=== PATIENT | male | born 1960 | race Caucasian/White ===

== ENCOUNTER 2022-10-02 18:12 | Inpatient (IN) | payer OTHER ==
[~2022-10-02] VITALS: Ht 162.6 cm; Wt 95.7 kg
--- NOTE | 2022-10-02 18:21 | NUR ---
Placed in room 07 . Placed on funeral car driver, blood pressure machine and pulse oximeter. To gown for exam. Side rails up. Report given to Ximena PETER .
[2022-10-02 18:22] VITALS: BP_SYST 161
[2022-10-02] MEDS ORDERED: dilTIAZem HCL IVP 5 MG/ML VIAL IVP ONE ×2 (18:30→18:45)
[2022-10-02] MEDS ORDERED: ADENOSINE 6MG/2ML VIAL ONE ×2 (18:34→18:35)
--- NOTE | 2022-10-02 18:42 | NUR ---
# 20 gauge angiocath placed to Right AC. Use of asceptic technique. Opsite placed over site. Blood return noted. Blood for lab drawn from site. Flushed with 10 cc of normal saline. No evidence of infiltration noted. Patient tolerated well.
--- NOTE | 2022-10-02 18:42 | NUR ---
12 Lead EKG done at bedside
--- NOTE | 2022-10-02 18:43 | NUR ---
Adensoine given per MD order, placed patient onto defibrillator, MD and additional RNs at bedside
[2022-10-02 18:45] LABS: BASOPHILS # (AUTO) 0.1 K/uL (0.0-0.2); BASOPHILS % (AUTO) 0.7 % (0.0-2.0); EOSINOPHILS # (AUTO) 0.2 K/uL (0.0-0.4); EOSINOPHILS % (AUTO) 2.6 % (0.0-4.0); HEMATOCRIT 39.6 % (36-54); HEMOGLOBIN 13.3 g/dL (14.0-18.0); LYMPHOCYTES # (AUTO) 2.4 K/uL (1.0-5.5); MEAN CORPUSCULAR HEMOGLOBIN 30 pg (27-31); MEAN CORPUSCULAR HGB CONC 34 % (32-36); MEAN CORPUSCULAR VOLUME 89 fL (79.0-98.0); MONOCYTES # (AUTO) 0.7 K/uL (0.0-1.0); MONOCYTES % (AUTO) 8.2 % (1.7-9.3); NEUTROPHILS # (AUTO) 4.8 K/uL (1.8-7.7); NEUTROPHILS % (AUTO) 59.5 % (40.0-70.0); PLATELET COUNT (AUTO) 147 K/uL (130-430); RED BLOOD CELL COUNT(AUTO) 4.44 MIL/uL (4.2-6.2); RED CELL DISTRIBUTION WIDTH 14.6 % (9.0-15.0); WHITE BLOOD COUNT (AUTO) 8.1 K/uL (4.8-10.8)
[2022-10-02] MEDS ORDERED: ADENOSINE 6MG/2ML VIAL IVP ONE (18:45)
--- NOTE | 2022-10-02 19:10 | NUR ---
RECIEVED REPORT FROM ANDRZEJ PETER, PT IN NAD, EVEN UNLABORED POSITION PT IS CONNECTED TO VS MONITOR AND IS TACHYCARDIC, PT STATES HE HAS A HISTORY OF TACHYCARDIA FOR MONTHS ACCORDING TO PT. AOX4 SAFETY RAILS UP BED LOWEST POSITION.
[2022-10-02 19:13] LABS: CALCIUM 8.4 mg/dL (8.4-11.0); CREATININE 0.84 mg/dL (0.55-1.30)
[2022-10-02] MEDS ORDERED: ATENOLOL 50 MG TABLET (TENORMIN) PO ONE (19:15)
[2022-10-02] MEDS ORDERED: LABETALOL HCL 20 MG/4 ML CARTRIDGE IVP ONE ×2 (19:15→21:15)
[2022-10-02 19:25] LABS: INR 1.1 (0.80-1.20); PROTHROMBIN TIME 11.6 SECS (9.5-12.5)
[2022-10-02 19:26] LABS: ALBUMIN 3.6 g/dL (3.4-4.8); FREE T4 (FREE THYROXINE) 1.1 ng/dL (0.6-1.6); THYROID STIMULATING HORMONE 1.84 uIu/mL (0.34-4.82); TOTAL BILIRUBIN 0.5 mg/dL (0.0-1.0)
--- NOTE | 2022-10-02 20:18 | NUR ---
BP-166/115 HR-143 medicated lobetalol 20mg ivp,and tenormin 50 mg po.
[2022-10-02] MEDS ORDERED: METF-518 PO (20:52)
[2022-10-02] MEDS ORDERED: HYDR-4039 PO (20:52)
[2022-10-02] MEDS ORDERED: LISI20TA30 PO (20:52)
[2022-10-02] MEDS ORDERED: APIX5TAB PO (20:52)
[2022-10-02] MEDS ORDERED: DIGO125T PO (20:52)
[2022-10-02] MEDS ORDERED: IBUP-1969 PO (20:52)
--- NOTE | 2022-10-02 21:21 | NUR ---
PT STATED HE HAS HAD A CARDIAC DEVICE INSERTED INFORMATION CARD IS WITH . ON THE CARD IT SATES I HAVE A/AN [employer] AV TRANSCATHETER PACING SYSTEM IMPLANTED. IMPLANT DATE 10-04-2022 SERIAL NUMBER [id number] MODEL NUMBER [id number]
[2022-10-02] MEDS ORDERED: DIGOXIN 0.5 MG/2 ML AMP IVP ONE (21:45)
[2022-10-02 22:05] VITALS: BP_SYST 157
--- NOTE | 2022-10-02 22:28 | NUR ---
REPORT GIVEN TO [facility]. AT BEDSIDE JABARI, HISTORY GIVEN THAT PT HAS REPORTED IN A NOTEBOOK THE TACHYCARDIA STARTED IN JULY 2022. MEDICATIONS TAKEN BY PT IN NOTEBOOK ALSO, MED REC COMPLETED BY INFORMATION STATED BY PT AND NOTEBOOK. NO CHANGES IN PT STATUS DURING TRANSFER
[2022-10-02] MEDS ORDERED: AMIODARONE HCL 150 MG in D5W 100 ML IV ONE (22:45)
[2022-10-02] MEDS ORDERED: IPRATROPIUM BROM 0.5 MG/2.5 ML VIAL.NEB (ATROVENT) INH PRN (22:45)
[2022-10-02] MEDS ORDERED: ONDANSETRON HCL 4 MG/2 ML VIAL IVP PRN (22:45)
[2022-10-02] MEDS ORDERED: IBUPROFEN 600 MG TABLET PO PRN (22:45)
[2022-10-02] MEDS ORDERED: ACETAMINOPHEN 325 MG TABLET PO PRN (22:45)
[2022-10-02] MEDS ORDERED: ALBUTEROL SULFATE 0.083% 2.5 MG/3 ML VIAL.NEB INH PRN (22:45)
[2022-10-02] MEDS ORDERED: NALOXONE HCL 0.4 MG/ML AMP (NARCAN) IVP PRN ×2 (22:45)
[2022-10-02] MEDS ORDERED: LORazepam 2 MG/ML VIAL IVP PRN (22:45)
[2022-10-02] MEDS ORDERED: HYDROcodone/ACETAMIN 10-325 MG TAB PO PRN (22:45)
[2022-10-02] MEDS ORDERED: HYDROcodone/ACETAMIN 5-325 MG TAB (NORCO/ VICODIN) PO PRN (22:45)
[2022-10-02] MEDS: METOPROLOL SUCCINATE 25 MG TAB.SR.24H (TOPROL XL) PO SCH (22:45)
[2022-10-02] MEDS ORDERED: AMIODARONE HCL 450 MG/9 ML VIAL IV ONE (22:55)
[2022-10-02] MEDS ORDERED: AMIODARONE HCL 150 MG/3ML VIAL ONE (22:55)
--- NOTE | 2022-10-02 23:00 | NUR ---
CONSULTATION PAGED/CALLED Reason for Consultation: TACHYCARDIA Person Who was Notified: DR. Jie COLLADO Consulting Physician: DR. Jie COLLADO Shrinking Machine Operator Specialty: CARDIOLOGY Ordering Physician: DR. Marisela COLLADO
[2022-10-02] MEDS ORDERED: METOPROLOL SUCCINATE 25 MG TAB.SR.24H (TOPROL XL) PO ONE (23:47)
[2022-10-03] VITALS (20 sets, daily range): BP systolic 137–167
[2022-10-03 05:05] LABS: BASOPHILS % (AUTO) 0.6 % (0.0-2.0); EOSINOPHILS # (AUTO) 0.2 K/uL (0.0-0.4); EOSINOPHILS % (AUTO) 3.3 % (0.0-4.0); LYMPHOCYTES # (AUTO) 2.2 K/uL (1.0-5.5); LYMPHOCYTES % (AUTO) 33.3 % (20.5-51.5); MEAN CORPUSCULAR HEMOGLOBIN 30 pg (27-31); MEAN CORPUSCULAR HGB CONC 33 % (32-36); MEAN CORPUSCULAR VOLUME 89 fL (79.0-98.0); MONOCYTES # (AUTO) 0.6 K/uL (0.0-1.0); MONOCYTES % (AUTO) 9.7 % (1.7-9.3); NEUTROPHILS # (AUTO) 3.5 K/uL (1.8-7.7); NEUTROPHILS % (AUTO) 53.1 % (40.0-70.0); PLATELET COUNT (AUTO) 137 K/uL (130-430); RED BLOOD CELL COUNT(AUTO) 4.37 MIL/uL (4.2-6.2); RED CELL DISTRIBUTION WIDTH 14.4 % (9.0-15.0); WHITE BLOOD COUNT (AUTO) 6.6 K/uL (4.8-10.8)
[2022-10-03 05:59] LABS: ALBUMIN 3.3 g/dL (3.4-4.8); CALCIUM 8.3 mg/dL (8.4-11.0); CREATININE 0.79 mg/dL (0.55-1.30); PHOSPHORUS 3.5 mg/dL (2.7-4.5); TOTAL BILIRUBIN 0.8 mg/dL (0.0-1.0)
[2022-10-03] MEDS ORDERED: NORMAL SALINE 5 ML DISP.SYRIN IVF SCH (06:00)
[2022-10-03] MEDS: NORMAL SALINE 5 ML DISP.SYRIN IVF SCH ×3 (06:00→21:36)
[2022-10-03] MEDS ORDERED: AMIODARONE HCL 450 MG/9 ML VIAL IV ONE (07:17)
[2022-10-03] MEDS: AMIODARONE HCL 450 MG in D5W 241 ML IV SCH ×3 (07:23)
--- NOTE | 2022-10-03 08:00 | NUR ---
PT LAYING UP IN BED, IN NAD. RESP EVEN AND UNLABORED, ON VIA NC @97%, DENIES ANY CP OR SOB. ST ON MONITOR. DR COLLADO AWARE, WILL CONT TO MONITOR CLOSELY.
[2022-10-03] MEDS ORDERED: METF-381 PO (08:13)
[2022-10-03] MEDS: hydrALAZINE HCL 25 MG TABLET PO SCH ×3 (08:38→21:34)
[2022-10-03] MEDS: DIGOXIN 0.125 MG TABLET PO SCH (08:38)
[2022-10-03] MEDS: METOPROLOL SUCCINATE 25 MG TAB.SR.24H (TOPROL XL) PO SCH ×2 (08:39→21:34)
[2022-10-03] MEDS: lisinopriL 20 MG TABLET PO SCH (08:39)
[2022-10-03] MEDS ORDERED: metFORMIN HCL 500 MG TABLET ONE (08:42)
[2022-10-03] MEDS: metFORMIN HCL 500 MG TABLET PO SCH ×2 (08:45→18:30)
--- NOTE | 2022-10-03 10:19 | NUR ---
DR PHIPPS NOTIFIED OF PT'S CURRENT CARDIAC TACHYCARDIA, NO NEW ORDERS RECEIVED. PT IN NAD.
--- NOTE | 2022-10-03 11:36 | NUR ---
PT UP TO BEDSIDE TOILET, HAD A NORMAL BM.
[2022-10-03] MEDS ORDERED: APIXABAN 2.5 MG TABLET PO ONE (11:45)
--- NOTE | 2022-10-03 15:32 | NUR ---
FAMILY AT BEDSIDE, UPDATED ON STATUS AND PLAN OF CARE
--- NOTE | 2022-10-03 17:52 | NUR ---
ATE SANDWICH FOR DINNER, 100%, DENIES ANY SOB OR CP. VSS.URINATING VIA URINAL WELL.
--- NOTE | 2022-10-03 18:45 | NUR ---
NO ACUTE CHANGES IN CONDITION, PT IN NAD. RESP EVEN AND UNLABORED, DENIES ANY CP OR SOB.
[2022-10-03] MEDS ORDERED: APIXABAN 2.5 MG TABLET PO SCH (21:00)
[2022-10-03] MEDS: APIXABAN 2.5 MG TABLET PO SCH (21:39)
[2022-10-03] MEDS: INSULIN REGULAR, HUMAN 100 UNITS/ML, 3 ML VIAL (humuLIN R) SUBCUT PRN (21:39)
[2022-10-04] VITALS (23 sets, daily range): BP systolic 112–155
[2022-10-04 05:00] LABS: BASOPHILS # (AUTO) 0.1 K/uL (0.0-0.2); BASOPHILS % (AUTO) 0.7 % (0.0-2.0); EOSINOPHILS # (AUTO) 0.3 K/uL (0.0-0.4); EOSINOPHILS % (AUTO) 3.4 % (0.0-4.0); HEMATOCRIT 39.2 % (36-54); HEMOGLOBIN 13.1 g/dL (14.0-18.0); LYMPHOCYTES # (AUTO) 2.1 K/uL (1.0-5.5); LYMPHOCYTES % (AUTO) 25.5 % (20.5-51.5); MEAN CORPUSCULAR HEMOGLOBIN 30 pg (27-31); MEAN CORPUSCULAR HGB CONC 33 % (32-36); MEAN CORPUSCULAR VOLUME 89 fL (79.0-98.0); MONOCYTES # (AUTO) 0.7 K/uL (0.0-1.0); MONOCYTES % (AUTO) 8.6 % (1.7-9.3); NEUTROPHILS % (AUTO) 61.8 % (40.0-70.0); PLATELET COUNT (AUTO) 138 K/uL (130-430); RED BLOOD CELL COUNT(AUTO) 4.42 MIL/uL (4.2-6.2); RED CELL DISTRIBUTION WIDTH 14.1 % (9.0-15.0)
[2022-10-04 05:07] LABS: CALCIUM 8.7 mg/dL (8.4-11.0); CREATININE 0.77 mg/dL (0.55-1.30)
[2022-10-04] MEDS: NORMAL SALINE 5 ML DISP.SYRIN IVF SCH ×3 (05:50→21:48)
--- NOTE | 2022-10-04 07:10 | NUR ---
received pt from BRITTANI Lambert, pt resting in bed, AAOx 4, Tachycardia on ekg monitor tech, on amiodarone drip, nonlabored breathing on 2L n.c., moving all extremities, peripheral pulse present, all precaution carried out.
[2022-10-04] MEDS: lisinopriL 20 MG TABLET PO SCH (08:38)
[2022-10-04] MEDS: METOPROLOL SUCCINATE 25 MG TAB.SR.24H (TOPROL XL) PO SCH ×2 (08:39→21:47)
[2022-10-04] MEDS: APIXABAN 2.5 MG TABLET PO SCH ×2 (08:41→21:48)
[2022-10-04] MEDS: DIGOXIN 0.125 MG TABLET PO SCH (08:43)
[2022-10-04] MEDS: hydrALAZINE HCL 25 MG TABLET PO SCH ×3 (08:44→21:47)
--- NOTE | 2022-10-04 09:00 | NUR ---
called pharmacy for metformin PO
[2022-10-04] MEDS ORDERED: dilTIAZem HCL IVP 5 MG/ML VIAL IVP ONE (10:00)
[2022-10-04] MEDS: metFORMIN HCL 500 MG TABLET PO SCH ×2 (10:33→17:29)
[2022-10-04] MEDS ORDERED: AMIODARONE HCL 200 MG TABLET PO ONE (10:45)
--- NOTE | 2022-10-04 10:57 | NUR ---
Called Dr. Schwartz with a consult,spoke with Simona from the exchange
--- NOTE | 2022-10-04 11:56 | NUR ---
discontinued Amiodarone drip, gave cardizem IVP and amiodarone po
--- NOTE | 2022-10-04 16:09 | NUR ---
give cardizem bolus of 23.9mg
[2022-10-04] MEDS ORDERED: APIXABAN 2.5 MG TABLET PO SCH (21:00)
[2022-10-04] MEDS: AMIODARONE HCL 200 MG TABLET PO SCH (21:45)
[2022-10-05] VITALS (29 sets, daily range): BP systolic 101–148
[2022-10-05 05:38] LABS: BASOPHILS % (AUTO) 0.5 % (0.0-2.0); EOSINOPHILS # (AUTO) 0.2 K/uL (0.0-0.4); EOSINOPHILS % (AUTO) 2.2 % (0.0-4.0); HEMATOCRIT 40.8 % (36-54); HEMOGLOBIN 13.6 g/dL (14.0-18.0); LYMPHOCYTES # (AUTO) 1.7 K/uL (1.0-5.5); LYMPHOCYTES % (AUTO) 17.5 % (20.5-51.5); MEAN CORPUSCULAR HEMOGLOBIN 30 pg (27-31); MEAN CORPUSCULAR HGB CONC 33 % (32-36); MEAN CORPUSCULAR VOLUME 88 fL (79.0-98.0); MONOCYTES # (AUTO) 0.9 K/uL (0.0-1.0); MONOCYTES % (AUTO) 8.9 % (1.7-9.3); NEUTROPHILS # (AUTO) 6.8 K/uL (1.8-7.7); NEUTROPHILS % (AUTO) 70.9 % (40.0-70.0); PLATELET COUNT (AUTO) 140 K/uL (130-430); RED BLOOD CELL COUNT(AUTO) 4.61 MIL/uL (4.2-6.2); RED CELL DISTRIBUTION WIDTH 14.1 % (9.0-15.0); WHITE BLOOD COUNT (AUTO) 9.6 K/uL (4.8-10.8)
[2022-10-05 05:45] LABS: ALBUMIN 3.4 g/dL (3.4-4.8); CALCIUM 8.4 mg/dL (8.4-11.0); CREATININE 0.78 mg/dL (0.55-1.30)
[2022-10-05] MEDS: NORMAL SALINE 5 ML DISP.SYRIN IVF SCH ×3 (06:00→21:58)
[2022-10-05] MEDS: metFORMIN HCL 500 MG TABLET PO SCH ×2 (08:00→18:10)
--- NOTE | 2022-10-05 08:00 | NUR ---
awake, alert, oriented, heart rate-132. no chestpain voiced. npo for cardioversion today . c/o with redness and slight swelling to rt. arm on antecubital fossa. iv cardizem 15 mg/hr infusing to lower rt arm 20 g angiocath with no redness ,no swelling noted . charge nurse notified. 1030 dr. elvis esteban here . etomidate 2mg ivp given and cardioverted done to 100 joules. heart rate 130 converted to hr= 66. all po meds given except apresoline po.blood sugar -175.1300- at bedside. scope62 continue with diltiazem 15 mg iv tdrip. 22g to lt hand inserted site-ok.cont. to monitor pt. 1330 endorsed to roxana mock. pt. having lunch. no c/o voiced.
[2022-10-05] MEDS: APIXABAN 2.5 MG TABLET PO SCH ×2 (09:00→21:58)
[2022-10-05] MEDS: hydrALAZINE HCL 25 MG TABLET PO SCH ×3 (09:00→21:55)
[2022-10-05] MEDS ORDERED: ETOMIDATE 20 MG/ 10 ML VIAL (AMIDATE) ONE (10:24)
[2022-10-05] MEDS ORDERED: ETOMIDATE 20 MG/ 10 ML VIAL (AMIDATE) IVP ONE (10:30)
[2022-10-05] MEDS: METOPROLOL SUCCINATE 25 MG TAB.SR.24H (TOPROL XL) PO SCH ×2 (11:00→21:00)
[2022-10-05] MEDS: DIGOXIN 0.125 MG TABLET PO SCH (11:01)
[2022-10-05] MEDS: AMIODARONE HCL 200 MG TABLET PO SCH ×2 (11:08→21:54)
[2022-10-05] MEDS: lisinopriL 20 MG TABLET PO SCH (11:09)
--- NOTE | 2022-10-05 14:17 | NUR ---
ENDORSE CARE AND REPORT FROM [facility]
--- NOTE | 2022-10-05 15:42 | NUR ---
PATIENT HAVE AN IV INFRACTION ACCORDING WITH THE PATIENT HAPPEN LAST NIGHT NOW THE SITE LOOKS RED AND INFLAMMATION I AM PUTTING ICE SEE IF GET BETTER
--- NOTE | 2022-10-05 16:56 | NUR ---
PATIENT STABLE VITALS SIGNS IN NORMAL LIMITS NOT COMPLAINING OF PAIN AT THIS TIME PACING ON MONITOR STILL IN DILTIAZEM DRIP RUNING AT 15MG
--- NOTE | 2022-10-05 17:16 | NUR ---
I CALL DOCTOR CESAR ESPANA TO INFORME ABOUT THE IV INFILTRATION STILL WAITING FOR HIM TO ANSWER
[2022-10-05] MEDS: INSULIN REGULAR, HUMAN 100 UNITS/ML, 3 ML VIAL (humuLIN R) SUBCUT PRN (17:28)
--- NOTE | 2022-10-05 19:24 | NUR ---
DR SUGEY WHYTE CALL ME BACK TO INFORMED ABOUT THE IV INFILTRATION I ENDORSED TO JEN PETER
--- NOTE | 2022-10-05 20:30 | NUR ---
Contacted Dr Marisela Tejeda to report infiltration of Cardizem occurred at 1700 during dayshift. Attempts to call Dr Tejeda made earlier and now responding to current page. Orders received to continue with cold compress and elevation of RUE. Pictures taken.
--- NOTE | 2022-10-05 21:00 | NUR ---
Heart rate remains at 60, Cardizem drip titrated down to 5 mg/h and stopped at this time. will continue to monitor patient's HR for need to re start medication.
[2022-10-06] VITALS (12 sets, daily range): BP systolic 100–139
[2022-10-06 05:31] LABS: BASOPHILS % (AUTO) 0.3 % (0.0-2.0); EOSINOPHILS # (AUTO) 0.2 K/uL (0.0-0.4); HEMATOCRIT 39.1 % (36-54); LYMPHOCYTES # (AUTO) 2.5 K/uL (1.0-5.5); LYMPHOCYTES % (AUTO) 24.3 % (20.5-51.5); MEAN CORPUSCULAR HEMOGLOBIN 29 pg (27-31); MEAN CORPUSCULAR HGB CONC 33 % (32-36); MEAN CORPUSCULAR VOLUME 89 fL (79.0-98.0); MONOCYTES # (AUTO) 1.2 K/uL (0.0-1.0); MONOCYTES % (AUTO) 11.3 % (1.7-9.3); NEUTROPHILS # (AUTO) 6.4 K/uL (1.8-7.7); NEUTROPHILS % (AUTO) 62.1 % (40.0-70.0); PLATELET COUNT (AUTO) 149 K/uL (130-430); RED BLOOD CELL COUNT(AUTO) 4.41 MIL/uL (4.2-6.2); RED CELL DISTRIBUTION WIDTH 14.6 % (9.0-15.0); WHITE BLOOD COUNT (AUTO) 10.4 K/uL (4.8-10.8)
[2022-10-06 05:45] LABS: CALCIUM 8.2 mg/dL (8.4-11.0); CREATININE 1.96 mg/dL (0.55-1.30)
[2022-10-06] MEDS: NORMAL SALINE 5 ML DISP.SYRIN IVF SCH (05:54)
[2022-10-06] MEDS: AMIODARONE HCL 200 MG TABLET PO SCH (08:16)
[2022-10-06] MEDS: hydrALAZINE HCL 25 MG TABLET PO SCH (08:17)
[2022-10-06] MEDS: DIGOXIN 0.125 MG TABLET PO SCH (08:17)
[2022-10-06] MEDS: APIXABAN 2.5 MG TABLET PO SCH (08:20)
[2022-10-06] MEDS: metFORMIN HCL 500 MG TABLET PO SCH (08:59)
[2022-10-06] MEDS: METOPROLOL SUCCINATE 25 MG TAB.SR.24H (TOPROL XL) PO SCH (09:01)
[2022-10-06] MEDS: lisinopriL 20 MG TABLET PO SCH (09:02)
[2022-10-06] MEDS ORDERED: AMIO200T61 PO (12:40)
[2022-10-06] MEDS ORDERED: METO-540 PO (12:40)
--- NOTE | 2022-10-06 13:55 | NUR ---
Patient d/c home with via wheelchair. D/C instructions given to patient in [place]. Verbalized understanding. Vitals stable. Sinus Rythm 64. No complaints of pain, dizziness or shortness of breath. IV catheters removed intact.
== END 2022-10-06 14:05 | disposition home or self-care (01) | DRG 291 ==
LOC: SED 18:12 → STU 20:26 → SIC 21:55 → STU 10-06 11:29
PROVIDERS: ADMIT Preventive Medicine Preventive Medicine/Occupational Environmental Medicine; ATTEND Preventive Medicine Preventive Medicine/Occupational Environmental Medicine
PROC: 5A2204Z Restoration of Cardiac Rhythm, Single (ICD-10-PCS; principal; 2022-10-05)
DX: I11.0 Hypertensive heart disease with heart failure (principal); I50.23 Acute on chronic systolic (congestive) heart failure; J96.01 Acute respiratory failure with hypoxia; I48.4 Atypical atrial flutter; I47.1 Supraventricular tachycardia; I43 Cardiomyopathy in diseases classified elsewhere; I48.91 Unspecified atrial fibrillation; E11.65 Type 2 diabetes mellitus with hyperglycemia; E78.5 Hyperlipidemia, unspecified; Z20.822 Contact with and (suspected) exposure to COVID-19; E66.9 Obesity, unspecified; Z95.0 Presence of cardiac pacemaker; Z79.01 Long term (current) use of anticoagulants; Z79.1 Long term (current) use of non-steroidal anti-inflammatories (NSAID); Z79.899 Other long term (current) drug therapy; Z68.36 Body mass index [BMI] 36.0-36.9, adult
CPT/HCPCS: 36415; 71045; 80048; 80053; 80162; 82550; 82962; 83735; 83880; 84100; 84439; 84443; 84484; 85025; 85610-TC; 85730-TC; 87081; 93005; 93306; 93971; 94760; 96365; 96375; 96376; 99285; J0153; J0282; J1160; J2405; J3490; J7060